=== PATIENT | female | born 1975 | race Asian ===

== ENCOUNTER 2018-09-12 22:03 | Inpatient (IN) | payer OTHER ==
[~2018-09-12] VITALS: Ht 152.4 cm; Wt 38.6 kg
[2018-09-12 22:11] VITALS: Ht 152.4 cm; Wt 38.6 kg
--- NOTE | 2018-09-12 22:15 | NUR ---
PT BROUGHT TO ED BY FAMILY WITH C/O FEVER AND COUGH SINCE WEDNESDAY. PER FAMILY THEY MEDICATED HER WITH 1 DOSE OF TYLENOL ON WEDNESDAY MORNING BUT DID NOT CONTINUE MEDICATION THERAPY. PER FAMILY PT HAS BEEN EXPERIENCING A FEVER AND A COUGH. PT FAMILY STATES THAT THEY DID NOT TAKE HER TEMP JUST "FELT SHE WAS WARM". PT RECTAL TEMP 105.0 AT THIS TIME. ID TYLENOL ADMINISTERED PER RN PROTOCOL. PT NOTED WITH WEAK COUGH THAT DOES NOT PRODUCE MUCOUS AT THIS TIME. PT LUNG SOUNDS COURSE AT THIS TIME. PT O2 SAT NOTED AT 88% ON RA, PT PLACED ON 4L O2 AT THIS TIME. PT O2 SAT 94% NOW. PT HAS MEDICAL HX OF MS AND IS NON VERBAL WHICH IS HER BASELINE, PER FAMILY PT "SEEMS DROWSY". PT AWAKE AND ALERT AT THIS TIME, PT WITHDRAWS TO PAIN BUT EYES TRACK APPROPRIATELY. PT FAMILY AT BEDSIDE AT THIS TIME.
--- NOTE | 2018-09-12 23:05 | NUR ---
INSERTED STRAIGHT CATH USING STERILE TECHNIQUE, CLEAR YELLOW URINE SENT TO LAB FOR TESTING.
--- NOTE | 2018-09-12 23:20 | NUR ---
PT RESTING IN A POSITION OF COMFORT AT THIS TIME. AWAKE AND ALERT, ACTING APPROPRIATELY FOR DEVELOPMENTAL AGE. FAMILY AT BEDSIDE, PT ON CM.
[2018-09-12] MEDS ORDERED: TEGRETOL200 MG PO (23:27)
[2018-09-12] MEDS ORDERED: DEPAKOTE ER250 M1 PO (23:27)
[2018-09-12] MEDS ORDERED: TOPIRAMATE100 M1 PO (23:28)
[2018-09-12 23:54] LABS: PLATELET COUNT 217 x10^3mcL (130-400); RED CELL DISTRIBUTION WIDTH 12.9 % (11.5-14.5)
[2018-09-12 23:57] LABS: BASOPHIL % 0 % (0-2)
[2018-09-12 23:57] LABS: UA SPECIFIC GRAVITY 1.025 (1.005-1.035); microscopic required? YES; urine erythrocyte 3+ (NEGATIVE)
[2018-09-13] VITALS (7 sets, daily range): BP systolic 75–128; BP diastolic 47–77
[2018-09-13 00:04] LABS: CALCIUM 7.8 mg/dL (8.5-10.1); CARBON DIOXIDE 21.4 mmol/L (21-32); CHLORIDE SERUM 111 mmol/L (98-107); CREATININE SERUM 0.6 mg/dL (0.6-1.0); GFR1 > 60 mL/min; GLUCOSE SERUM 105 mg/dL (74-106); POTASSIUM SERUM 3.3 mmol/L (3.5-5.1); SODIUM SERUM 145 mmol/L (136-145)
[2018-09-13 00:09] LABS: ALKALINE PHOSPHATASE 182 U/L (46-116); ALT/SGPT 21 U/L (14-59); AST/SGOT 24 U/L (15-37); BILIRUBIN TOTAL 0.3 mg/dL (0.20-1.00)
[2018-09-13 00:12] LABS: ALBUMIN 2.4 g/dL (3.4-5.0)
--- NOTE | 2018-09-13 00:15 | NUR ---
PT CONTINUES TO REST IN A POSITION OF COMFORT, PT ON FULL CM. PT AWAKE AND ALERT, EYES TRACKING APPROPRIATELY. FAMILY AT BEDSIDE.
[2018-09-13 00:18] LABS: CK-MB < 0.5 ng/mL (0-3.6); CREATINE KINASE 48 U/L (26-192)
--- NOTE | 2018-09-13 01:25 | NUR ---
REPORT GIVEN TO SHREYA VALENTINE TO ASSUME CARE OF PT.
--- NOTE | 2018-09-13 01:47 | NUR ---
PT TRANSFERRED TO [facility] BY [facility] BY [facility] DESIR AND REINA RN. PT ON FULL CM FOR TRANSPORT. PT ACCEPTED BY DIANA VALENTINE TO ASSUME PT CARE. PT AWAKE AND ALERT ACTING APPROPRIATELY FOR AGE, EYES TRACKING APPROPRIATELY, PT FAMILY STATES SHE IS ACTING "NORMAL". PT FAMILY AT SIDE.
--- NOTE | 2018-09-13 02:00 | NUR ---
RECIEVED PT VIA GURNEY FROM ER ACOOMPANIED BY RN AND FATHER AND MOTHER OF THE PT, PT IS NONVERBAL, NO ACUTE DISTRESS AT THIS TIME, PT IS ON 2L NC NO SOB AT THIS TIME, ADMISSION ASSESSMENT PERFORMED AT THIS TIME, IV TO THE RIGHT AND LEFT WRISTS, TELE MONITOR 3 NSR, PT VITAL SIGNS STABLE, SIEZURE PRECAUTIONS IN PLACE, CALL LIGHT WITHIN REACH, BED IN THE LOWEST POSITION WILL CONTINUE TO MONITOR.
[2018-09-13 02:13] LABS: MAGNESIUM 1.7 mg/dL (1.8-2.4); PHOSPHOROUS 2.7 mg/dL (2.5-4.9)
[2018-09-13 02:17] LABS: FREE T4 0.81 ng/dL (0.76-1.46); FREE THYROXINE INDEX 2.2 ug/dL (1.4-4.5)
[2018-09-13 02:25] LABS: T3 TOTAL 0.95 ng/mL
--- NOTE | 2018-09-13 05:18 | NUR ---
PT SLEPT SINCE ADMISSION, PT HAD NO ACUTE RESPIRATORY DISTRESS SINCE ADMISSION, SIEZURE PRECAUTIONS WERE PUT IN PLACE AND MAINTAINED THROUGH SHIFT, PT HAD LOW POTASSIUM AND MAG WHICH WERE COVERED VIA K RIDER AND MAG PO, SAFETY PRECAUTIONS WERE MAINTAINED, WILL CONTINUE TO MONITOR AND ENDORSE CARE TO ONCOMING RN
[2018-09-13 06:38] LABS: PLATELET COUNT 207 x10^3mcL (130-400); RED CELL DISTRIBUTION WIDTH 12.4 % (11.5-14.5)
--- NOTE | 2018-09-13 06:44 | NUR ---
DR BUSTILLOS IN TO SEE PATIENT STATED "PLANNING TO CONTINUE CURRENT COURSE OF ABX"
[2018-09-13 07:02] LABS: CALCIUM 8.2 mg/dL (8.5-10.1); CARBON DIOXIDE 18.9 mmol/L (21-32); CHLORIDE SERUM 116 mmol/L (98-107); CREATININE SERUM 0.6 mg/dL (0.6-1.0); GFR1 > 60 mL/min; GLUCOSE SERUM 89 mg/dL (74-106); MAGNESIUM 1.9 mg/dL (1.8-2.4); PHOSPHOROUS 2.7 mg/dL (2.5-4.9); POTASSIUM SERUM 4.3 mmol/L (3.5-5.1); SODIUM SERUM 148 mmol/L (136-145)
--- NOTE | 2018-09-13 07:30 | NUR ---
RECEIVED PT FROM AUTOMOTIVE REFINISH TECHNICIAN. PT IS SLEEPING THIS TIME. FATHER AT BEDSIDE. NO DISTRESS NOTED. STABLE. WILL ASSESS AND DOCUMENT. SAFTEY PRECAUTIONS ARE IN PLACE. WILL MONITOR.
--- NOTE | 2018-09-13 09:30 | NUR ---
PT REMAINS STABLE. GAVE REPORT TO RN CECE.
--- NOTE | 2018-09-13 10:50 | NUR ---
SPOKE WITH DR BUSTILLOS FOR CONTINUATION OF HOME MEDS. NOTIFIED THAT PHARMACY INQUIRED ABOUT TEST AND SUGGESTED DEPAKOTE LEVEL BE DRAWN. DR BUSTILLOS TO ASSESS HOME MEDICATIONS AND PLACE ORDERS.
[2018-09-13] MEDS ORDERED: DEPAKOTE SPRIN125 MG PO ×2 (10:54→10:55)
[2018-09-13] MEDS ORDERED: MONTELUKAST SOD10 M1 PO (10:56)
[2018-09-13] MEDS ORDERED: LIPI10 PO (10:58)
--- NOTE | 2018-09-13 11:36 | NUR ---
DR JACOBSEN IN TO SEE AND ASSESS PATIENT.
[2018-09-13 11:55] LABS: BAND NEUTROPHIL 19 % (0-10); BASOPHIL 0 % (0-2); MONOCYTE 3 % (0-7); PLATELET MORPHOLOGY PLATELETS DECREASED; SEGMENTED NEUTROPHILS 73 % (37-75)
[2018-09-13 11:56] LABS: rbc morphology (normal/abnorm) ABNORMAL (NORMAL)
--- NOTE | 2018-09-13 12:16 | NUR ---
IN TO RECHECK PT BP 85/56 DR APOLLO DILLON AND PAGE GATED. PT ASYMPTOMATIC.
--- NOTE | 2018-09-13 12:38 | NUR ---
ATTEMPTED TO FEED PATIENT. PT IS REFUSING ALL FOOD. WILL RETRY LATER AND AGAIN WHEN PARENTS ARRIVE.
--- NOTE | 2018-09-13 13:37 | NUR ---
REPORT GIVEN TO ZAID VALENTINE. PT RESTING COMFORTABLY ON AIR MATTRESS WITH FATHER AT BEDSIDE. ALL NEEDS MET. FATHER IS FEEDING PATIENT. ENDORSED THAT PT NOW HAS PUREE DIET AND HOME MEDICATIONS HAVE BEEN CONTINUED. ALL QUESTIONS AND CONCERNS ADDRESSED.
--- NOTE | 2018-09-13 13:38 | NUR ---
RECEIVED PT FROM [place]. PT IS SLEEPING THIS TIME. STABLE.
--- NOTE | 2018-09-13 13:50 | NUR ---
CHARGE NURSE SAID SHE INFORMED ABOUT CARBAMAZEPINE LEVEL 12.9 AND TOLD HER SHE MAY HOLD TODAY'S DOSE.
--- NOTE | 2018-09-13 17:50 | NUR ---
INFORMED ABOUT BP 84/51 WITH MAP 62. PT IS ASYMPTAMATIC. PT IS 85LB ONLY. NO NEW ORDER RECIEVED THIS TIME.
--- NOTE | 2018-09-13 19:15 | NUR ---
PT REMAINS STABLE. DENIES PAIN THIS TIME. GAVE REPORT TO PRESERVATIONIST NURSE.
--- NOTE | 2018-09-13 19:45 | NUR ---
RECEIVED REPORT FROM DAY SHIFT RN. PT RESTING IN BED. OPENS EYES TO VERBAL STIMULI. NO SOB ON O2 2L VIA NC. NO FACIAL GRIMACING. IV SALINE LOCK TO RT WRIST. IV TO LT WRIST, NS INFUSING. SAFETY MEASURES IN PLACE. BED IN LOWEST POSITION. SIDE RAIL PADS IN PLACE. ON AIR MATTRESS. WILL ANTICIPATE NEEDS.
[2018-09-14 06:01] VITALS: BP 124/95
--- NOTE | 2018-09-14 07:25 | NUR ---
PT RESTED AT INTERVALS THROUGHOUT SHIFT. NO SOB ON O2 2L VIA NC. NO SEIZURES OR DISTRESS NOTED. TURNED Q2H. CLEANED AND MADE COMFORTABLE. SAFETY MEASURES MAINTAINED. ENDORSED CONTINUITY OF CARE TO DAY SHIFT RN.
[2018-09-14 08:34] VITALS: BP 88/53
[2018-09-14 09:09] VITALS: BP 92/53
--- NOTE | 2018-09-14 09:18 | NUR ---
ADMINISTERED MEDICATION PER MAR. WITH ASSISTANCE OF CLAUDE VALENTINE, REPOSITIONED PATIENT TO HER LEFT SIDE. PATIENT HAD BM AND WAS CLEANED WITH LINEN CHANGED. PATIENT CALM, FAMILY AT BEDSIDE
[2018-09-14 09:33] LABS: CALCIUM 8.7 mg/dL (8.5-10.1); CHLORIDE SERUM 115 mmol/L (98-107); CREATININE SERUM 0.6 mg/dL (0.6-1.0); GFR1 > 60 mL/min; GLUCOSE SERUM 118 mg/dL (74-106); PHOSPHOROUS 1.5 mg/dL (2.5-4.9); POTASSIUM SERUM 3.7 mmol/L (3.5-5.1); SODIUM SERUM 148 mmol/L (136-145)
--- NOTE | 2018-09-14 09:50 | NUR ---
PER TRANSFER ORDER PATIENT IS NOW MEDSURG, REMOVED PATIENT TELE NUMBER3. TELE MONITOR #3 [facility] TO [facility].
[2018-09-14 10:17] LABS: BASOPHIL % 0.3 % (0-2); PLATELET COUNT 204 x10^3mcL (130-400); RED CELL DISTRIBUTION WIDTH 12.8 % (11.5-14.5)
--- NOTE | 2018-09-14 12:07 | NUR ---
ADMKHUSHBU GUALLPA PER MAY. PATIENT LAYING SUPINE AFTER LAST TURNING. PATIENT RESPONDS TO VOICE. FAMILY IS NOT AT BEDSIDE AT THIS TIME. PATIENT DOES NOT SEEM TO BE SHOWING ANY SIGNS OF PAIN AT THIS TIME
--- NOTE | 2018-09-14 13:05 | NUR ---
Initial Nutrition Assessment: Dx: Sepsis, PNA PMHx: cerebral palsy with epilepsy, HLD PSHx: Hysterectomy Labs: Na 148H, Alb 2.4L, Ca 8.2L, ALP 182H, Lipase 49L, WBC 13.7H, Hct 35L Meds: Colace, Depakote, Lipitor, Mag-ox, Toradol, Tums, Zofran Diet: Pureed diet x 1 day PO Intake: 100% of breakfast 09/14, 40% average of 3 meals 09/13. Ht: 5'0 Wt: 85 lb, 39 kg BMI: 16.6 kg/m2 (Underweight) Bed scale: 76.1 lb IBW: 100 lb, 45 kg %IBW: 85 UBW: unknown Age: 43 yrs old/Female Food Allergies: unknown Skin: is intact. Hoang: 15 Edema: none GI: abd is soft, w/ active bowel sounds. Last BM: 09/12/18, soft Pt is aphasic, on nasal cannula, w/ 2 CRANE HELPER's at bedside providing care. Per CRANE HELPER, family fed pt this morning, % PO intake is unknown. Pt is not able to provide any history, no family at bedside during RD visit. All information gathered from EMR. Pt appeared emaciated. Per RN, pt ate 100% of breakfast this morning. Trigger received: appears underwt/malnourished, admitted w/ potential risk diagnosis. Consult received for malnutrition and BMI 16.6 kg/m2. Problem with: N/V/D/C: no Problems with: Chewing: yes Swallowing: yes Current appetite: poor Recent wt change: unknown %wt change: n/a Vitamin/Supplement use: unknown Special diet at home: none Physical activity: none, pt is wheelchair bound and has limited ROM of extremities. Nutrition education: is not appropriate. Food-drug interactions: Colace, Lipitor, Zofran. Education was not appropriate. Estimated Nutritional Needs Based on current body weight 39 kg Energy:7063-9068 kcal/d (35-40 kcal/kg for for severely underweight status) Protein: 56-78 g/d (1.5-2 g/kg for severely underweight status) Fluid: 8550-2411 ml/d (1 ml/kcal) or per doctor Nutrition Diagnosis 1 Increased nutritional needs r/t metabolic demands AEB estimated calories and protein for sepsis. 2. Severely underweight r/t chronic physiological conditions 2/2 age and poor appetite AEB measured BMI 16.6 kg/m2. Intervention 1. Recommend continuing Pureed diet per MD orders. 2. Recommend adding Ensure Enlive TID. ONS will provide additional 1050 kcal and 60 gm protein daily. 3. Recommend Megace. Monitor/Evaluate Goal: PO intake at least 75% of estimated needs Monitor: PO intake, Labs, GI function F/U in 2-3 days as high risk 09/16-09/18
--- NOTE | 2018-09-14 16:25 | NUR ---
FOUND PATIENT LAYING SUPINE IN BED WATCHING TV. PATIENT NOT COMLAINING OF ANY PAIN. PATIENT STATES HE REFUSED PHYSICAL THERAPY TO WALK WITH HIM STATING "I WANT TO SAVE MY LAST BIT OF STRENGTH TO CRAWL HOME" AND HE "JUST WANTS TO GET HOME SO HE CAN GET STRONGER." REINFORCED TEACHING TO PATEINT FOR NEED OF PHYSICAL THERAPY. PATIENT IS ABLE TO USE HIS UPPER EXTREMITIES TO SIT UP IN BED BUT WILL NOT SIT AT EDGE OF BED TO USE URINAL SAYING HE IS TOO WEAK
--- NOTE | 2018-09-14 16:28 | NUR ---
ADAM AMEZCUA CONTRACT ASSOCIATE MANAGER REPORTED THEY REPOSITIONED PATIENT TO LEFT SIDE LAYING. PATIENT HAD BM AND URINATED. PATEINT CHANGED AND REPOSITIONED
[2018-09-14 16:32] VITALS: BP 94/54
--- NOTE | 2018-09-14 17:23 | NUR ---
ADMINISTERED MEDICATOIN PER MAR. PATIENT RESTING COMFORTABLY ON RIGHT SIDE. PATIENT DOES NOT SEEM TO BE IN ANY PAIN
--- NOTE | 2018-09-14 20:22 | NUR ---
PT RECIEVED AWAKE ALERT NON VERBAL WITH FAMILY AT THE BEDSIDE,PT HAS HL TO BOH WITH THE SITE INTACT,PT ON 2L N/C SAT 96%,PT CONTRACTED TO BUE AND BLE,KEPT CLEAN AND DRY TO TOUCH,PT INCONTINENT,SKIN IS WARM AND DRY TO TOUCH,PT ON LOW AIR MATTREES,HOB,PT IS TOTAL CARE,CALL LIGHT EASY REACHED AND WILL CONTINUE TO MONITOR.
[2018-09-14 21:28] VITALS: BP 88/61
--- NOTE | 2018-09-14 22:48 | NUR ---
PT CLEAN REPOSITION AND WAS MADE COMFORTABLE IN BED,WILL CONTINUE TO MONITOR.
--- NOTE | 2018-09-15 04:17 | NUR ---
PT REPOSITIONN AND WAS MADE COMFORTABLE IN BED AND WILL CONTINUE TO MONITOR.
[2018-09-15 05:30] VITALS: BP 91/66
[2018-09-15 06:23] LABS: BASOPHIL % 0.3 % (0-2); PLATELET COUNT 233 x10^3mcL (130-400)
--- NOTE | 2018-09-15 06:24 | NUR ---
REPOSITION CLEAN AND WAS MADE COMFORTABLE IN BED AND WILL CONTINUE TO MOBNITOR NO CHANGE.
[2018-09-15 07:06] LABS: CARBON DIOXIDE 20.8 mmol/L (21-32); CHLORIDE SERUM 115 mmol/L (98-107); CREATININE SERUM 0.5 mg/dL (0.6-1.0); GFR1 > 60 mL/min; GLUCOSE SERUM 100 mg/dL (74-106); MAGNESIUM 2.2 mg/dL (1.8-2.4); PHOSPHOROUS 2.8 mg/dL (2.5-4.9); POTASSIUM SERUM 4.5 mmol/L (3.5-5.1); SODIUM SERUM 147 mmol/L (136-145)
--- NOTE | 2018-09-15 07:15 | NUR ---
RECEIVED HAND OFF REPORT. FOUND PATIENT RIGHT SIDE LAYING IN BED. EYE OPEN, BREATHING STEADY. INCOMPREHENSABLE SOUNDS AND NO COORDINATED MOVENT. PATIENT DOES NOT SEEM TO BE IN ANY PAIN AT THIS TIME. IV FLUSHES WELL, TKO RATE. WILL CONTINUE TO MONITOR
--- NOTE | 2018-09-15 09:52 | NUR ---
ADMINISTERED MEDICATIONS PER AR. PATIENT TURNED TO LEFT SIDE, BD PRESENT. CHANGED PATIENT LINEN WITH HELP OF CARISSA BOOTH. PATIENT FAMILY AT BEDSIDE
[2018-09-15 10:03] VITALS: BP 104/68
--- NOTE | 2018-09-15 11:47 | NUR ---
ADMINISTERED ANTIBIOTIC PER MAY. REPSITIONED PATIENT FROM LEFT SIDE TO SUPINE. PATIENT DOES NOT APEAR TO BE IN PAIN
--- NOTE | 2018-09-15 14:03 | NUR ---
PATIENT HAD 1 EPISODE OF VOMITING. NO AIRWAY COMPROMISE. CLEANED PATIENT AND CHANGED SOILED LINEN. TURNED PATIENT TO LEFT SIDE LAYING. ADMINISTERED ZOFRAN PRN FOR VOMITING.
--- NOTE | 2018-09-15 17:00 | NUR ---
PATIENT MOVED BY STAFF TO [facility], [facility]. NO INCIDENT OR INJURY
--- NOTE | 2018-09-15 17:25 | NUR ---
ADMINISTERED MEDIATION PER MAY. PATIENT MOVED TO [facility]. PATIENT TLLERATING WELL. NO OBVIOUS SIGNS OF PAIN AT THIS TIME
[2018-09-15 17:40] VITALS: BP 98/63
--- NOTE | 2018-09-15 18:57 | NUR ---
PATIENT HAD BM. CHANGED PATIENT AND REPOSITIONED. FAMILY AT BEDSIDE AT THIS TIME
--- NOTE | 2018-09-15 19:20 | NUR ---
PT RECEIVED AWAKE AND ALERT, UNABLE TO MAKE NEEDS KNOWN OR FOLLOW SIMPLE COMMAND. MED-SURG, NO S/S OF CP/PRESSURE OBSERVED. BREATHING IS EVEN AND UNLABORED ON RA, NO RESP DISTRESS NOTED. ABD SOFT AND FLAT, NO N/V PRESENT. PT HAS EPISODES OF URINARY INCONTINENCE. GENERALIZED WEAKNESS, ON AIR MATTRESS; TOTAL CARE. CONTRACTURES TO BUE AND BLE. SKIN IS WARM AND DRY, INTACT. NO S/S OF PAIN OBSERVED AT THIS TIME. IV TO RW AND LW, PATENT AND INTACT, SITES WNL. NO ACUTE DISTRESS OBSERVED. BED ALARM ON. BED IN LOWEST SETTING, SIDE RAILS UP X2, CALL LIGHT WITHIN REACH. WILL CONT TO MONITOR.
[2018-09-15 20:49] VITALS: BP 94/61
--- NOTE | 2018-09-16 00:22 | NUR ---
PT RESTING IN BED WITH EYES CLOSED, BUT IS EASILY AROUSABLE. BREATHING IS EVEN AND UNLABORED, NO RESP DISTRESS NOTED. PT INCONTINENT OF URINE, PT CLEANED AND REPOSITIONED. NO S/S OF PAIN OBSERVED. NO ACUTE DISTRESS NOTED. BED ALARM ON, CALL LIGHT WITHIN REACH. WILL CONT TO MONITOR.
[2018-09-16 06:11] VITALS: BP 109/75
[2018-09-16 07:15] LABS: BASOPHIL % 0.3 % (0-2); PLATELET COUNT 258 x10^3mcL (130-400); RED CELL DISTRIBUTION WIDTH 12.9 % (11.5-14.5)
--- NOTE | 2018-09-16 07:30 | NUR ---
RECEIVED PATIENT RESTING IN BED COMFORTABLY, AWAKE AND NON-VERBAL. NO SIGNS OF CHEST PAIN NOTED. BREATHING EVEN AND UNLABBORED ON ROOM AIR, HOB ELEVATED, ASPIRATION PRECAUTIONS MAINTAINED, PATIENT IS ON RT PROTOCOL. NO SIGNS OF PAIN NOTED. PATIENT IS TOTAL CARE, ON LOW AIR LOSS MATTRESS, WILL CONTINUE WITH REPOSITIONING Q2H DURING SHIFT AND MAINTAIN PATIENT CLEAN AND DRY. IV TO RFA AND LFA INTACT AND PATENT FREE FROM REDNESS AND INFILTRATION. PATIENT IS CALM WITH CARE. SAFETY PRECAUTIONS MAINTAINED. WILL MONITOR.
--- NOTE | 2018-09-16 07:33 | NUR ---
PT SLEPT WELL THROUGHOUT THE EVENING. BREATHING IS EVEN AND UNLABORED ON RA, NO RESP DISTRESS NOTED. NO S/S OF PAIN OBSERVED. PT INCONTINENT OF URINE, PT CLEANED AND REPOSITIONED, GOWN AND LINENS CHANGED. NO ACUTE CHANGES ENCOUNTERED DURING SHIFT. ALL NEEDS MET AND ANTICIPATED. IV TO RW AND LW, PATENT AND INTACT, SITE WNL. BED IN LOWEST SETTING, SIDE RAILS UP X2, BED ALARM ON, CALL LIGHT WITHIN REACH. CONTINUITY OF CARE ENDORSED TO AM NURSE. ALL QUESTIONS AND CONCERNS ADDRESSED.
[2018-09-16 07:50] LABS: CALCIUM 8.6 mg/dL (8.5-10.1); CARBON DIOXIDE 23.5 mmol/L (21-32); CHLORIDE SERUM 109 mmol/L (98-107); CREATININE SERUM 0.5 mg/dL (0.6-1.0); GFR1 > 60 mL/min; GLUCOSE SERUM 97 mg/dL (74-106); POTASSIUM SERUM 4.1 mmol/L (3.5-5.1); SODIUM SERUM 142 mmol/L (136-145)
--- NOTE | 2018-09-16 08:28 | NUR ---
RT AT BEDSIDE FOR BREATHING TREATMENT.
[2018-09-16 09:27] VITALS: BP 110/66
--- NOTE | 2018-09-16 10:02 | NUR ---
PATIENT RESTING COMFORTABLY IN BED, NO DISTRESS NOTED, FAMILY IVANNA AT BEDSIDE. ALL NEEDS ATTENDED TO, SAFETY PRECAUTIONS MAINTAINED. WILL MONITOR.
[2018-09-16] MEDS ORDERED: LEVAQUIN750 MG PO (12:06)
[2018-09-16] MEDS ORDERED: CLEOCIN HCL300 MG PO (12:08)
[2018-09-16 12:40] VITALS: BP 110/66
--- NOTE | 2018-09-16 13:15 | NUR ---
PATIENT STABLE FOR DISCHARGE HOME. DISCHARGE INSTRUCTIONS, PRESCRIPTION, BELONGINGS LIST AND EDUCATION REVIEWED WITH PATIENTS FATHER IVANNA AT BEDSIDE, VERBALIZED UNDERSTANDING TO FOLLOW UP WITH PCP ON 09/27/18. ALL QUESTIONS AND CONCERNS ADDRESSED. IV TO RFA AND LFA REMOVED CATH INTACT. PATIENTS FATHER IVANNA WILL BRING PATIENTS WHEELCHAIR SHE USES AT HOME FROM HIS CAR. ALL NEEDS ATTENDED TO. SAFETY PRECAUTIONS MAINTAINED.
--- NOTE | 2018-09-16 13:26 | NUR ---
PATIENT STABLE FOR DISCHARGE HOME. ARM BANDS REMOVED. PATIENT ASSISTED DOWN TO LOBBY VIA PATIENTS OWN WHEELCHAIR FROM HOME ACCOMPANIED BY FATHER AND NURSE AID. ALL PERSONAL BELONGINGS SENT HOME WITH PATIENT.
== END 2018-09-16 13:26 | disposition home or self-care (01) | DRG 720 ==
LOC: ED 22:03 → MU 09-13 01:00 → DU 09-13 01:00 → MU 09-14 09:50
PROVIDERS: Emergency Medicine; General Practice; ADMIT Internal Medicine
DX: A41.9 Sepsis, unspecified organism (principal); J69.0 Pneumonitis due to inhalation of food and vomit; E43 Unspecified severe protein-calorie malnutrition; J96.01 Acute respiratory failure with hypoxia; G80.9 Cerebral palsy, unspecified; G40.802 Other epilepsy, not intractable, without status epilepticus; Z68.1 Body mass index [BMI] 19.9 or less, adult; J44.1 Chronic obstructive pulmonary disease with (acute) exacerbation; E87.6 Hypokalemia; E83.42 Hypomagnesemia; D53.9 Nutritional anemia, unspecified; E83.51 Hypocalcemia; E78.5 Hyperlipidemia, unspecified; Z99.3 Dependence on wheelchair; Z90.710 Acquired absence of both cervix and uterus; Z79.899 Other long term (current) drug therapy
CPT/HCPCS: 83880; 84439; 87804; G0378; J1956; J2405; J2543; J3480; J7030; J7620; Q0092

== ENCOUNTER 2018-10-01 18:15 | Inpatient (IN) | payer OTHER ==
[~2018-10-01] VITALS: Ht 152.4 cm; Wt 32.5 kg
[~2018-10-01 18:15] MED LIST: CLEOCIN HCL300 MG PO; DEPAKOTE ER250 M1 PO; DEPAKOTE SPRIN125 MG PO; LEVAQUIN750 MG PO; LIPI10 PO; MONTELUKAST SOD10 M1 PO; TEGRETOL200 MG PO; TOPIRAMATE100 M1 PO
--- NOTE | 2018-10-01 19:08 | NUR ---
PT BIB SPOUSE, C/O INTERMITTENT FEVERS AND DRY COUGH X1 DAY. PER SPOUSE, PT ADMITTED 2WKS AGO FOR PNA, D/C HOME. PT AWOKE W/ FEVERS AND DRY COUGH TODAY. PT HAS HX OF CP, NON-VERBAL. LUNG SOUNDS CLEAR THROUGHOUT UPON AUSCULTATION, RESPS E/U, NO RESP DISTRESS NOTED AT THIS TIME. SPOUSE REPORTS NO OTHER COMPLAINTS. SPOUSE DENIES N/V/D. SEIZURES PRECAUSTIONS IN PLACE FOR HX SEIZURES, LAST SEIZURE WAS A FEW DAYS AGO PER SPOUSE. WILL CONTINUE TO MONITOR.
--- NOTE | 2018-10-01 19:20 | NUR ---
X-RAY AT BEDSIDE
--- NOTE | 2018-10-01 19:34 | NUR ---
EKG IN PROGRESS BY EMT KATHRYN AT BEDSIDE.
--- NOTE | 2018-10-01 19:58 | NUR ---
PT AWAKE, LAYING IN POSITION OF COMFORT. PT NON-VERBAL. PER SPOUSE, PT ACTING APPROPRIATELY. 2 BED RAILS UP, BED IN LOW AND LOCKED POSITION, SEIZURE PADS IN PLACE. CALL LIGHT W/IN REACH OF SPOUSE, SPOUSE AT BEDSIDE. WILL CONTINUE TO MONITOR.
[2018-10-01 20:03] LABS: PLATELET COUNT 274 x10^3mcL (130-400); RED CELL DISTRIBUTION WIDTH 13.4 % (11.5-14.5)
--- NOTE | 2018-10-01 20:16 | NUR ---
IN AND OUT CATHETER PERFORMED FOR URANALYSIS ORDER. PROCEDURE CHAPERONED BY MAXWELL VALENTINE. EMT KATHRYN TO ASSIST PROCEDURE
[2018-10-01 20:18] LABS: BAND NEUTROPHIL 11 % (0-10); BASOPHIL 0 % (0-2); METAMYELOCTE 1 % (0-2); MONOCYTE 3 % (0-7); SEGMENTED NEUTROPHILS 79 % (37-75)
[2018-10-01 20:20] LABS: rbc morphology (normal/abnorm) NORMAL (NORMAL)
[2018-10-01 20:23] LABS: CALCIUM 8.8 mg/dL (8.5-10.1); CARBON DIOXIDE 19.1 mmol/L (21-32); CHLORIDE SERUM 109 mmol/L (98-107); CREATININE SERUM 0.8 mg/dL (0.6-1.0); GFR1 > 60 mL/min; GLUCOSE SERUM 143 mg/dL (74-106); POTASSIUM SERUM 3.3 mmol/L (3.5-5.1); SODIUM SERUM 141 mmol/L (136-145)
[2018-10-01 20:28] LABS: microscopic required? NO
[2018-10-01 20:35] LABS: ALBUMIN 2.8 g/dL (3.4-5.0); ALKALINE PHOSPHATASE 80 U/L (46-116); ALT/SGPT 9 U/L (14-59); AST/SGOT 17 U/L (15-37); BILIRUBIN TOTAL 0.42 mg/dL (0.20-1.00); TOTAL PROTEIN, SERUM 6.8 g/dL (6.4-8.2)
[2018-10-01 20:41] LABS: urine erythrocyte NEGATIVE (NEGATIVE)
--- NOTE | 2018-10-01 21:06 | NUR ---
PT AWAKE, LAYING IN POSITION OF COMFORT. 2 BED RAILS UP, BED IN LOW AND LOCKED POSITION, SEIZURE PADS IN PLACE. VSS, RESPS E/U, NAD NOTED AT THIS TIME. SPOUSE AT BEDSIDE. IL NS STARTED AT 100ML/HR PER MD ORDER. WILL CONTINUE TO MONITOR.
--- NOTE | 2018-10-01 21:29 | NUR ---
500MG IV AZITHROMYCIN STARTED PER MD ORDER. SEE LAB RESULTS
--- NOTE | 2018-10-01 22:32 | NUR ---
REPORT GIVEN TO ANGIE
--- NOTE | 2018-10-01 22:36 | NUR ---
MD AWARE OF BP, PT OK TO GO UP
--- NOTE | 2018-10-01 22:48 | NUR ---
RECEIVED FROM ED,PUT IN ROOM [address] AND MADE COMFORTABLE.MEDSURG PATIENT.DUSTIN WILL ADMIT,THANKS.
--- NOTE | 2018-10-01 22:48 | NUR ---
RECEIVED PT VIA GUERNEY FROM E/D, ACCOMPANIED BY TRANSPORTER. PT AWAKE, NON-VERBAL, UTD ORIENTATION, SEIZURE PRECAUTIONS IN PLACE. NO S/S CHEST PAIN OR DISCOMFORT. MELANY LUNGS DIM, CHEST RISING EVENLY, R/A, 97%, NON-PRODUCTIVE COUGH. ABD SOFT, FLAT, NON-TENDER, NORMOACTIVE BOWEL SOUNDS X 4 QUADS, LAST BM 10/01/18, LOOSE, BOWEL AND BLADDER INCONTINENT, USES DIAPERS AT HOME. GENERALIZED WEAKNESS, CONTRACTURES TO BUE/BLE, FALL RISK PROTOCOL IN PLACE. CHRISTIANO: 10, LALM IN PLACE FOR SKIN MANAGEMENT. IV SITE RFA 20G, CDI. UNABLE TO PARTICIPATE IN ANY LEARNING ACTIVITY. PADDED SIDE RAILS UP X 2, BED IN LOW POSITION. WILL ENDORSE TO SERGE ADAMS.
[2018-10-01 23:12] VITALS: BP 100/60
--- NOTE | 2018-10-01 23:19 | NUR ---
NS AT 100 CC/ HOUR,EXTENSION TUBING APPLIED FOR EASIER HANDLING BOTH NURSES AND PATEINT,MITZIRJuana.PATIENT VERY TINY,65 LBS.NO FAMILY MEMBER.HAD LARGE BM FROM ER,KEEP CLEAN AND DRY,NO SKIN BREAKDOWN.PATIENT ON HER FETL POSITION,NONVERBAL.MED MANAGER CULINARY HERE,MADE PUCKETT OF LOW K+ LEVEL 3.3.
[2018-10-02] VITALS (9 sets, daily range): BP systolic 74–100; BP diastolic 46–63
--- NOTE | 2018-10-02 02:47 | NUR ---
FATHER WAS HERE EARLIER,VERY SUPPORTIVE OF CARE.SAYS HE TAKES CARE OF HER DUGHTER AT HOME,WITH .PATIENT PUT ON AIRMATTRESS,BONY,ONLY 65 LBS,DIETARY CONSULT,ASPIRATION PRECAUTION.NO DIET ORDER YET.
--- NOTE | 2018-10-02 04:39 | NUR ---
NEW ORDER RT PROTOCOL,CHIKI TX.RT MADE AWARE.
--- NOTE | 2018-10-02 05:47 | NUR ---
I AND O MEASURED.ATB SCHEDULED.IV SITE GOOD,NS AT 100 CC/ HOUR.WILL ENDORSE TO NEXT SHIFT,NO DIET ORDERE YET,DIETARY CONSULT,ASPIRATION PRECAUTION.WILL ENDORSE TO NEXT SHIFT.
--- NOTE | 2018-10-02 06:57 | NUR ---
NOW ON TELE INPATIENT.WILL GET BOX FROM [facility].
--- NOTE | 2018-10-02 07:02 | NUR ---
PATIENT NOW ON TELE 10 SR.NEW ORDER
[2018-10-02 07:04] LABS: BASOPHIL % 0.1 % (0-2); PLATELET COUNT 212 x10^3mcL (130-400); RED CELL DISTRIBUTION WIDTH 13.1 % (11.5-14.5)
[2018-10-02 07:10] LABS: CALCIUM 8.4 mg/dL (8.5-10.1); CARBON DIOXIDE 20.9 mmol/L (21-32); CHLORIDE SERUM 113 mmol/L (98-107); CREATININE SERUM 0.6 mg/dL (0.6-1.0); GFR1 > 60 mL/min; GLUCOSE SERUM 84 mg/dL (74-106); POTASSIUM SERUM 3.4 mmol/L (3.5-5.1); SODIUM SERUM 146 mmol/L (136-145)
--- NOTE | 2018-10-02 07:20 | NUR ---
RECEIVED PT. IN BED AWAKE, ALERT. PT. IS NON-VERBAL AND OPENS EYES WITH TACTILE/VERBAL STIMULI. NO SOB, NO N/V NOTED. NO INDICATION OF PAIN NOTED. NS RUNNING AT 100 CC/HR VIA IV SITE AT R FA. CONTRACTURES NOTED TO BUE AND BLE. PT. IS ON AIR MATTRESS. SCD TO BLE MAINTAINED. SEIZURE PRECAUTIONS IN PLACE. BED IN LOW POS., CALL LIGHT WITHIN REACH. SIDE RAILS UP X3. WILL REPOSITION Q 2 HRS.
--- NOTE | 2018-10-02 09:45 | NUR ---
B/P= 78/56 (63), P= 74. THE ABOVE B/P AND MAP WERE REPORTED TO DR. ZELAYA. ORDER TO GIVE NS 1L IV BOLUS RECEIVED.
--- NOTE | 2018-10-02 10:00 | NUR ---
IVF NS 1L BOLUS STARTED AT 1000 CC/HR.
--- NOTE | 2018-10-02 11:00 | NUR ---
1L NS IV BOLUS COMPLETED. B/P RECHECKED. B/P= 94/55 (68), P= 80.
--- NOTE | 2018-10-02 13:48 | NUR ---
B/P= 76/50 (58), P= 88. THE ABOVE B/P AND MAP WERE REPORTED TO DR. ZELAYA. ORDER TO GIVE 1 MORE LITER NS IV BOLUS RECEIVED.
--- NOTE | 2018-10-02 13:55 | NUR ---
DR. ZELAYA AT BEDSIDE TO ASSESS PT. AT THIS TIME.
--- NOTE | 2018-10-02 14:07 | NUR ---
IVF NS 1L IV BOLUS (2ND LITER) STARTED AT 1000 CC/HR.
--- NOTE | 2018-10-02 15:07 | NUR ---
2ND L NS IV BOLUS (1L ) COMPLETED. B/P= 74/52 (59), P= 60 ( R ARM); B/P= 70/49 (56), P= 56 ( L ARM). THE ABOVE B/Ps AND MAPs WERE REPORTED TO DR. ZELAYA. DR. ZELAYA STATED PT. WILL NEED TO BE TRANSFERRED TO ICU.
--- NOTE | 2018-10-02 15:20 | NUR ---
CALLED AND GAVE REPORT TO SOFIA RITCHIE RN IN ICU DEPT. ALL QUESTIONS AND CONCERNS ADDRESSED.
--- NOTE | 2018-10-02 15:35 | NUR ---
PT. IS BEING TRANSFERRED TO ICU DEPT. WITH ALL BELONGINGS. PT. IS BEING TRANSFERRED TO ROOM ICU BED #5.
--- NOTE | 2018-10-02 15:40 | NUR ---
PT TRANSFER FROM 209[facility] TO ICU 5 WITH DUSTIN RN, ILDA RN WITH PORTABLE CARDIC MONITOR AND IV FLUIDS. PT IS AWAKE ALERT, ABLE TO FOLLOW COMMANDS IN MANDARIN. PT ON ROOM AIR NO SIGNS OF RESP DISTRESS OR SOB NOTED. B/P 92/46 MAP 63 RR 20, AX TEMPT 97.5, 95%PO2SAT. PT ON FULL CARDIC MONITOR. BED AT LOW AND CALL LIGHT WITHIN REACH.
--- NOTE | 2018-10-02 16:05 | NUR ---
NBP 79/53 MAP 64 LEVOPHED STARTED AT 2MCG/KG/MIN TO ACHIEVE MAP 65.
--- NOTE | 2018-10-02 16:55 | NUR ---
RECEIVED PT TRANSFERED FROM [facility] UNIT WITH PRIMARY CARE NURSE. PT IS ALERT, AWAKE, NONVERBAL, BUT FOLLOW SIMPLE COMMAND. WILL CONTINUE TO MONITOR.
--- NOTE | 2018-10-02 18:31 | NUR ---
PT'S PARENTS AT BEDSIDE, PT FOLLOW SIMPLE COMMAND AND TOLERATE WELL ON PUREE DIET. PT ON LEVOPHED 0.5MCG/MIN, BP MAP > 65. IVF NS INFUSING AT 150ML/HR. WILL CONTINUE TO MONITOR.
--- NOTE | 2018-10-02 19:10 | NUR ---
RECEIVED REPORT FROM CHEY VALENTINE. WILL RESUME CARE.
--- NOTE | 2018-10-02 21:07 | NUR ---
CARBAMAZEPINE 200MG PO HELD PER DR. OLSON ORDER. LAB RESULT LEVELS TOO HIGH 12.9. ORDER TO RECHECK LABS IN AM.
--- NOTE | 2018-10-02 21:36 | NUR ---
DR. CROWELL MADE AWARE OF HIGH LEVEL OF CARBAMAZEPINE, PER DR. OLSON, WILL SKIP TONIGHT'S DOSE, AND CHECK LEVEL AGAIN AT 0500 THIS MORNING.
--- NOTE | 2018-10-02 22:34 | NUR ---
RIGHT FA IV NOT FLUSHING, CHECKED SITE FOR REDNESS OR SWELLING, NON VISIBILE. ADJUSTED ARM WITH NO SUCCESS. DID NOT WANT TO RISK IT WITH LEVOPHED INFUSING. REMOVED IV AND INITIATED NEW IV TO RIGHT BICEP 20G. PATENT, DRESSING CDI.
--- NOTE | 2018-10-02 22:35 | NUR ---
PT HAD ONE SMALL GREEN LIQUID STOOL. PT CLEANED AND CHANGED. Z GUARD APPLIED TO RUPESH AREA FOR REDNESS.
[2018-10-03 03:40] VITALS: BP 93/65
--- NOTE | 2018-10-03 04:41 | NUR ---
FOREST LAW AND POLICY PROFESSOR AT BEDSIDE FOR BLOOD DRAW.
--- NOTE | 2018-10-03 04:54 | NUR ---
DR. ZELAYA AT BEDSIDE ASSESSING PT. UPDATES PROVIDED.
[2018-10-03 05:11] LABS: CALCIUM 7.5 mg/dL (8.5-10.1); CHLORIDE SERUM 121 mmol/L (98-107); CREATININE SERUM 0.6 mg/dL (0.6-1.0); GFR1 > 60 mL/min; GLUCOSE SERUM 138 mg/dL (74-106); MAGNESIUM 1.9 mg/dL (1.8-2.4); POTASSIUM SERUM 4.5 mmol/L (3.5-5.1); SODIUM SERUM 149 mmol/L (136-145)
[2018-10-03 05:25] LABS: BASOPHIL % 0.5 % (0-2); PLATELET COUNT 141 x10^3mcL (130-400); RED CELL DISTRIBUTION WIDTH 13.7 % (11.5-14.5)
--- NOTE | 2018-10-03 05:53 | NUR ---
URINARY CATHETER, BARTH 16F INSERTED WITH 100CC OF YELLOW URINE OUTPUT NOTED. SECURED TO PT THIGH AND DRAINING VIA GRAVITY. PT TOLERATED WELL.
--- NOTE | 2018-10-03 07:08 | NUR ---
GAVE GROUP REPORT TO OSEI DODD, AND HILTON VALENTINE. ALL QUESTIONS AND CONCERNS ADDRESSED.
--- NOTE | 2018-10-03 07:16 | NUR ---
RECIEVED REPORT FROM CALEB VALENTINE. ALL QUESTIONS ANSWERED AND ADDRESSED. WILL RESUME CARE.
[2018-10-03 07:45] VITALS: BP 95/53
--- NOTE | 2018-10-03 07:51 | NUR ---
LEVOPHED TITRATED OFF. PT'S BP OF 96/64 (76).
--- NOTE | 2018-10-03 11:10 | NUR ---
HEMANGI WITH DIETARY AT BEDSIDE, STATED THAT IF THE PT IS DETERMINED TO NEED TUBE FEEDING A RESULT OF A FAILED SWALLOW EVAL SHE RECOMMENDS THE PT RECEIVE VITAL AF FORMULA. AWAITING SPEECH THERAPY TO CONDUCT SWALLOW EVAL AT THIS TIME.
--- NOTE | 2018-10-03 11:56 | NUR ---
1. Recommend Vital AF 1.2 @ 20ml/hr. Goal rate 50 ml/hr. FWF 65 ml Q4H. Goal rate will provide 1440 kcal and 90g protein. (Due to malnutrition and BMI 15.1 kg/m2). 2. Recommend Regular diet (texture to be determined by [employer] eval).
--- NOTE | 2018-10-03 11:56 | NUR ---
Initial Nutrition Assessment: IC05/1 CYNTHIA SANTANA IA HR Dx: sepsis and PNA PMHx: Cerebral palsy, Seizure PSHx: none Labs: NA 149H, BG 138H, P 2.0L Meds: Depakote, folic acid, levophed. Lipitor, zosyn Diet: Puree w/nectar thick liquids PO Intake: not documented Ht: 152.4 cm (60") Wt: 35 kg (77#) BMI: 15.1 kg/m2 (underweight) Bed scale: 42.9 kg (however not accurate d/t wt of pillows) IBW: 100# (45.4 kg) %IBW: 77 UBW: unable to access Age: 43/F Food Allergies: NKFA Skin: blanchable redness to sacral area Hoang: 13 Edema: none GI: Last BM: 10/03/18 (per RN) Trigger: appears underweight/malnourished, unintentional wt loss >10# x 1 month. Per H&P, Pt is a 43 years old female with PMH of cerebral palsy, epilepsy who presented to ED with worsening non-productive cough, fever 103.4 at home and chills. Patient was admitted last 2 weeks for PNA and discharged on antibiotics (Clindamycin and levaquin). RDN Visit (10/03): Patient looked extremely emaciated and malnourished. There was no family at bedside and patient was unable to comprehend/ respond. Dr. Flaherty asked RD to provide recommendations for tube feeding as patient is extremely underweight/ malnourished. Patient is awaiting swallow eval. FNS received consult for malnutrition on 10/03/18. Paged Dr. Mosqueda to discuss recommendations. Waiting for call back. Problem with: N/V/D/C: none (per RN Ene) Problems with: Chewing/Swallowing: swallow eval pending Current appetite: unable to access Recent wt change: unable to access %wt change: unable to access Vitamin/Supplement use: unable to access Special diet at home: unable to access Physical activity: unable to access Nutrition education given: Not appropriate at this time as patient is unable to comprehend d/t medical condition. Food-drug interactions: Lipitor - avoid grapefruit Education given: no Estimated Nutritional Needs Based on actual body weight 35 kg Energy: 4621-3639 kcal/d (35-40 kcal/kg)- underweight Protein: 42-49 g/d (1.2-1.4 g/kg) - malnutrition/sepsis Fluid: 5425-9040 ml/d (1 ml/kcal) or per doctor Nutrition Diagnosis 1. Malnutrition related to poor PO as evidenced by BMI 15.1 kg/m2. Intervention 1. Recommend Vital AF 1.2 @ 20ml/hr. Goal rate 50 ml/hr. FWF 65 ml Q4H. Goal rate will provide 1440 kcal and 90g protein. (Due to malnutrition and BMI 15.1 kg/m2). 2. Recommend Regular diet (texture to be determined by DIESEL ENGINE TESTER eval). Monitor/Evaluate Goal: PO/TF intake at least 75% of estimated needs Monitor: PO/TF intake/tolerance, Labs, GI function F/U in 2-3 days as high risk 10/05-
--- NOTE | 2018-10-03 14:28 | NUR ---
SPEECH PATHOLOGIST AT BEDSIDE FOR SWALLOW EVAL. PT POCKETING FOOD WITH DELAY IN SWALLOWING. RECOMMENDED FOR HONEY-THICK LIQUID.
[2018-10-03 15:06] LABS: FREE T4 0.77 ng/dL (0.76-1.46); FREE THYROXINE INDEX 1.9 ug/dL (1.4-4.5); T4(THYROXINE) 5.8 ug/dL (4.7-13.3)
--- NOTE | 2018-10-03 15:08 | NUR ---
PT WAS SEEN FOR DYSPHAGIA. PT HAD MILD POCKETING FOR PUREE DIET AND COUGHING FOR THIN LIQUID. PT NEEDS VERBAL REMINDER TO SWALLOW PUREE DIET AND HONEY THICK LIQUID. RECOMMENDATION PUREE DIET WITH HONEY THICK LIQUID SMALL BITES AND SIPS ONLY. 1:1 SUPERVISION.
[2018-10-03 15:13] LABS: T3 TOTAL 1.04 ng/mL
--- NOTE | 2018-10-03 15:30 | NUR ---
PT HAD SMALL AMOUNT OF GREEN MUCUOUS-LIKE STOOL. PT CLEANED AND LINENS CHANGED.
[2018-10-03 16:00] VITALS: BP 127/66
--- NOTE | 2018-10-03 16:26 | NUR ---
DR. BAILON AT BEDSIDE TO SEE AND ASSESS PT, PER DR. BAILON PT STABLE FOR MST TRANSFER. WILL NOTIFY COVERING RESIDENT.
--- NOTE | 2018-10-03 16:27 | NUR ---
DR. BAILON AT BEDSIDE ASSESSING PT. UPDATES PROVIDED. QUESTIONS AND CONCERNS ADDRESSED. PT IS ABLE TO TRANSFER TO TELE.
[2018-10-03 19:25] VITALS: BP 107/49
--- NOTE | 2018-10-03 19:25 | NUR ---
RECEIVED REPORT FROM OSEI VALENTINE, AND HILTON RN. SEE NURSING ASSESSMENT FOR MORE DETAILS. PT BED AT LOWEST SETTING, HOB ELEVATED 30 DEGREES PER ASPIRATION PRECUATIONS. CALL LIGHT WITHIN REACH. SEIZURE PRECAUTIONS INTACT. NS INFUSING @ 70 ML/HR. PT ON CONTINUOUS PULSE OXIMETRY AND FULL AREA REPRESENTATIVE. WILL CONT TO MONITOR.
[2018-10-03 23:06] VITALS: BP 98/61
--- NOTE | 2018-10-04 01:32 | NUR ---
PT SLEEPING BUT AROUSABLE, EYES OPEN TO STIMULI. NO S/S OF ANY DISTRESS, REMAINS ON ROOM AIR. PT ON FULL SHERIFF'S DETECTIVE AND CONTINUOUS PULSE OXIMETRY. VITALS WNL.
[2018-10-04 03:20] VITALS: BP 94/56
--- NOTE | 2018-10-04 04:01 | NUR ---
DR. ZELAYA AT BEDSIDE, UPDATED HER ON PT STATUS AND QUESTIONS ANSWERED. NO NEW ORDERS AT THIS TIME.
--- NOTE | 2018-10-04 05:01 | NUR ---
CONSERVATION TECHNICIAN SONIA AT BEDSIDE FOR BLOOD DRAW FOR AM LABS.
[2018-10-04 05:28] LABS: BASOPHIL % 0.4 % (0-2); PLATELET COUNT 181 x10^3mcL (130-400); RED CELL DISTRIBUTION WIDTH 13.8 % (11.5-14.5)
[2018-10-04 05:45] LABS: CALCIUM 8.2 mg/dL (8.5-10.1); CARBON DIOXIDE 19.3 mmol/L (21-32); CHLORIDE SERUM 118 mmol/L (98-107); CREATININE SERUM 0.6 mg/dL (0.6-1.0); GFR1 > 60 mL/min; GLUCOSE SERUM 96 mg/dL (74-106); MAGNESIUM 1.8 mg/dL (1.8-2.4); PHOSPHOROUS 2.8 mg/dL (2.5-4.9); POTASSIUM SERUM 4.5 mmol/L (3.5-5.1); SODIUM SERUM 148 mmol/L (136-145)
--- NOTE | 2018-10-04 07:10 | NUR ---
RECIEVED REPORT FROM SERGE CASTILLO TO ASSUME ALL CARES. ALL QUESTIONS AND CONCERNS ADDRESSED. PATIENT IS CURRENTLY SLEEPING IN BED TO LEFT SIDE. SEIZURE PRECAUTIONS IN PLACE. RESPIRATIONS ARE EQUAL AND SYMMETRICAL ON ROOM AIR. IVF INFUSING TO RIGHT UPPER IV WITH NO SIGNS OF INFILTRATION NOTED. F/C IN PLACE AND SECURED DRAINING TO GRAVITY. BILATERAL HEEL PROTECTORS IN PLACE. ISOGEL MATRESS IN USE. SCD'S ON TO BLE. BUE/BLE CONTRACTURES NOTED, PILLOWS IN PLACE TO ALLEVIATE PRESSURE POINTS. FALL PRECAUTIONS IN PLACE. BED TO LOWEST POSITION, SIDE RAILS UP X3, CALL LIGHT WITHIN REACH. WILL CONTINUE TO MONITOR.
--- NOTE | 2018-10-04 07:11 | NUR ---
GAVE REPORT TO SERGE RUIZ. UPDATES GIVEN QUESTIONS ANSWERED, ENDORSED CARE.
[2018-10-04 07:37] VITALS: BP 97/69; Ht 152.4 cm; Wt 32.5 kg
--- NOTE | 2018-10-04 08:10 | NUR ---
DR. DRAKE AT BEDSIDE TO ASSESS PATIENT. UPDATES PROVIDED AND POC DISCUSSED. PER DR. DRAKE, PATIENT IS STABLE TO BE TRANSFERRED TO TELE. WILL CONTINUE TO MONITOR.
--- NOTE | 2018-10-04 09:00 | NUR ---
DELFIN, STITCHING MACHINE OPERATOR AT BEDSIDE FOR ECHOCARDIOGRAM. WILL CONTINUE TO MONITOR.
--- NOTE | 2018-10-04 10:20 | NUR ---
RT RITA AT BEDSIDE AND PLACED PATIENT ON HIGH FLOW 30 LPM AND 45% FI02. CURRENT SAT 92%. WILL CONTINUE TO MONITOR.
[2018-10-04 11:34] VITALS: BP 102/68
--- NOTE | 2018-10-04 11:58 | NUR ---
DR. GARCIA, RESIDENTS, VARNISH MELTER AND PRIMARY RN AT BEDSIDE FOR MORNING ROUNDS. PLAN OF CARE DISCUSSED. PT STABLE TO TRANSFER TO [facility]. WILL CONT TO MONITOR.
--- NOTE | 2018-10-04 12:48 | NUR ---
PATIENT HAD A LOOSE BROWNISH/GREEN STOOL NOTED. PATIENT CLEANED UP, NEW YELLOW GOWN PROVIDED. Z-GUARD APPLIED TO PERINEAL AND COCCYX AREA. PATIENT TOLERATED WELL. WILL CONTINUE TO MONITOR.
--- NOTE | 2018-10-04 14:35 | NUR ---
REPORT GIVEN TO SERGE MONDRAGON TO ASSUME ALL CARES UPON TRANSFER TO TELE FLOOR. ALL QUESTIONS AND CONCERNS ADDRESSED. PATIENT'S PARENTS MADE AWARE OF THE TRANSFER.
[2018-10-04 15:20] VITALS: BP 111/66
--- NOTE | 2018-10-04 15:20 | NUR ---
REC ICU TRANSFER VIA [facility], PT AA/O X1 MANDARIN SPK, SZ PREC INPLACE. BREATHING EVEN AND UNLABORED ON 2L NC SATING AT 96% . NO ACUTER RESP DISTRESS OR SOB NOTED. TELE 15 HR SB 59 NOTED. VS: 111/66 MAP 78, RESP 16, TEMP 98.8 PULSES PRESENT / BOWEL SOUNDS ACTIVE IN ALL FOUR QUADS. BARTH INTACT AND PATENT, DRAINING CLEAR YELLOW URINE NOTED. TOTAL CARE, AIR MATTRESS, ELBOW AND FOOT PROTECTORS APPLIED. IV TO THE MARIA VICTORIA INTACT AND AND PATENT, NS INFUSING AT 70ML/HR, NO REDNESS OR SWELLING NOTED. WILL CONTINUE TO MONITOR.
[2018-10-04 18:52] VITALS: BP 106/64
--- NOTE | 2018-10-04 19:30 | NUR ---
NO ACUTE CHANGES, NO ACUTE RESP DISTRESS OR SOB NOTED. WILL ENDORSE TO INCOMING RN.
--- NOTE | 2018-10-04 19:36 | NUR ---
RECEIVED PT FROM PREVIOUS SHIFT. PT IS MANDARIN SPEAKING. RESPONDS TO VERBAL AND TACTILE STIMULI. BREATHING E/U ON 2L OXYGEN NC. NO SOB OBSERVED. NO S/S ACUTE DISTRESS. NO SIGNS OF PAIN OBSERVED. IV SITE CDI, NO ERTHEMA OR EDEMA. HEEL AND ELBOW PROTECTORS IN PLACE. ASPIRATION PRECAUTIONS IN PLACE, HOB ELEVATED. SAFETY MEASURES IN PLACE. CALL LIGHT WITHIN REACH. WILL CONTINUE TO MONITOR.
[2018-10-04 20:34] VITALS: BP 113/65
--- NOTE | 2018-10-04 21:00 | NUR ---
PT TOLERATED MEDICATION ADMINISTRATION WELL, ASPIRATION PRECAUTIONS IN PLACE, HOB REMAINS ELEVATED. NO POCKETING NOTED. NO COUGHING NOTED AFTER PT SWALLOWED MEDICATIONS. WILL CONTINUE TO MONITOR.
--- NOTE | 2018-10-04 23:35 | NUR ---
PT RESTING IN BED WITH EYES CLOSED. EASILY AROUSABLE TO SOUND STIMULI. NO INDICATIONS OF PAIN. NO S/S ACUTE DISTRESS. BREATHING E/U ON 3L OXYGEN NC. SAFETY MEASURES IN PLACE. WILL CONTINUE TO MONITOR.
[2018-10-05] VITALS (7 sets, daily range): BP systolic 102–118; BP diastolic 50–75
--- NOTE | 2018-10-05 05:29 | NUR ---
TELE #13 PLACED ON PT PER TRANSFER ORDERS, PT RHYTHM: SINUS BRADYCARDIA, HR 45-50S.
[2018-10-05 06:38] LABS: BASOPHIL % 0.3 % (0-2); PLATELET COUNT 188 x10^3mcL (130-400); RED CELL DISTRIBUTION WIDTH 13.4 % (11.5-14.5)
--- NOTE | 2018-10-05 06:52 | NUR ---
PT SLEPT IN SHORT INTERVALS THROUGHOUT NIGHT. ALL NEEDS MET AND ATTENDED TO. NO CHANGES OVERNIGHT. BREATHING E/U ON 3L OXYGEN NC. NO SOB OBSERVED. NO SIGNS OF PAIN NOTED. NO S/S ACUTE DISTRESS. BARTH DRAINED 550CC OF CLEAR, YELLOW URINE. IV SITE CDI, NO ERYTHEMA OR EDEMA NOTED. CALL LIGHT WITHIN REACH. SAFETY MEASURESI N PLACE. WILL ENDORSE CARE TO ONCOMING SHIFT.
[2018-10-05 07:11] LABS: CALCIUM 8.2 mg/dL (8.5-10.1); CARBON DIOXIDE 21.8 mmol/L (21-32); CHLORIDE SERUM 117 mmol/L (98-107); CREATININE SERUM 0.6 mg/dL (0.6-1.0); GFR1 > 60 mL/min; GLUCOSE SERUM 93 mg/dL (74-106); MAGNESIUM 1.9 mg/dL (1.8-2.4); PHOSPHOROUS 3.2 mg/dL (2.5-4.9); POTASSIUM SERUM 4.7 mmol/L (3.5-5.1); SODIUM SERUM 148 mmol/L (136-145)
--- NOTE | 2018-10-05 07:20 | NUR ---
BEDSIDE REPORT GIVEN TO GLORY RN. ALL QUESTIONS AND CONCERNS ADDRESSED.
--- NOTE | 2018-10-05 07:30 | NUR ---
RECEIVED PT IN BED, IN NO APPARENT ACUTE DISTRES/PAIN, MANDARIN LANGUAGE, ALERT RESPONSE TO VERBAL COMMAND, FAMILY AT BEDSIDE, PERRLA, NO REDNESS/DRAINAGE, RESP EVEN AND NON-LABORED, ON RA, LUNGS CTA, DIM BLL, CHEST RISE SYMMETRICALLY, TELE #13, HR-54 AT THIS TIME, ABD FLAT AND NON-TENDER TO TOUCH, BS ACTIVE X 4, REDNESS TO PERINEAL AND COCCYX AREA, ELBOW AND HEEL PROTECTOR, (L) AND (R) HIP COVERED WITH OPTIFOAM, DRESSING D/C/I, BEDREST, Z-GUARD APPLIED, INCONTINENT, CONTRACTED TO BUE/BLE, PALP PULSES, CAP REFIL < 3 SECS, TURN Q2H, ALL NEEDS MET, CALL LIGHT IN REACH, BED AI LOW POSITION, RAILS X 2, CONTINUE TO MONITOR
--- NOTE | 2018-10-05 08:55 | NUR ---
PT IN BED, FAMILY AT BEDSIDE, IN NO ACUTE RESP DISTRESS/PAIN, AM MED GIVEN PER MD ORDER VIA EMAR, TOLERATED WELL, NO ASE NOTED AT THIS TIME, ALL NEEDS MET, TURN Q2H, CONTINUE TO MONITOR
--- NOTE | 2018-10-05 10:37 | NUR ---
REAL ESTATE OFFICE MANAGER CALLED, NOTED HR IN 40S, PT CHECKED, SLEEPING IN BED, IN NO RESP ACUTE DISTRESS, CHEST RISE SYMMETRICALLY, HEART SOUND STRONG, S1S2 NOTED AND NO ABNORMAL SOUND NOTED, CHARGE NURSE STACEY VALENTINE AWARE, CONTINUE TO MONITOR
--- NOTE | 2018-10-05 11:50 | NUR ---
PT SLEEPING IN BED, IN NO ACUTE RESP DISTRESS, TURN Q2H, ALL NEEDS MET, SAFEETY PROTOCOL FOLLOWED, CONTINUE TO MONITOR
--- NOTE | 2018-10-05 13:27 | NUR ---
I HAVE REVIEWED THE DATA COLLECTION BY SERGE ISLAS (NAME):KRISTEN CORBIN ENTERED ON (DATE/TIME): 10/05/18 @ 9095 I CONCUR WITH THE DATA AND ANY EXCEPTIONS OR COMMENTS ARE LISTED BELOW:
--- NOTE | 2018-10-05 14:30 | NUR ---
PT IN BED, IN NO ACUTE RESP DISTRESS, FAMILY AT BEDSIDE, MOTHER ASSISTED TO FEED PT, NOTED PT POCKETING FOOD, AWARE, ST JESSEAL, FAMILY AWARE, ALL NEEDS MET, SAFETY PRECAUTION FOLLOWED, CONTINUE TO MONITOR
--- NOTE | 2018-10-05 15:11 | NUR ---
NEW ORDER TO TRANSFER PT TO [facility], TELE REMOVED AND GAVE BACK TO TELE WELDING FOREMAN ZUNILDA, ALL NEEDS MET, CONTINUE TO MONITOR
--- NOTE | 2018-10-05 16:25 | NUR ---
PT WAS SEEN FOR DYSPHAGIA. PT HAD MILD POCKETING FOR PUREE DIET. PT HAD MILD COUGH FOR THIN LIQUID. PT WAS ABLE TO SAFELY SWALLOW HONEY THICK LIQUID. RECOMMENDATION PUREE DIET WITH HONEY THICK LIQUID. SMALL BITES AND SIPS ONLY 1:1 SUPERVISION
--- NOTE | 2018-10-05 17:30 | NUR ---
SEEN BY ST 2ND TIME FOR EVAL, PT MORE AWAKE, ST WAS ABLE TO PERFORM ACURATE ST EVAL D/T PT MORE AWAKE, RECOMMEND PUREED DIET AND HONEY THICKEN LIQUID AND ENCOURAGE PT TO SWALLOW FOOD DURING FEEDING. FAMILY AWARE AND AGREED WITH EVAL
--- NOTE | 2018-10-05 17:53 | NUR ---
PT RESTING IN BED, FAMILY AT BEDSIDE, IN NO ACUTE RESP DISTRESS, NO FACIAL DROOP/SLURRED SPEECH NOTED, RESP EVEN AND NON-LABORED, CHEST RISE SYMMETRICALLY, FAMILY AWARE OF ST EVAL AND SAID WILL BE WITH PT WHEN ST EVAL PT SWALLOW CAPACITY, ST AWARE FAMILY WILL COME AT MEAL TIME, IV PATENT AN INFUSING WELL, ALL NEEDS MET, JOSUE LIGHT IN REACH, BED AT LOW POSITION, RAILS X2, WILL ENDORSE TO ONCOMING RN
[2018-10-05 19:04] LABS: AMPHETAMINE QUAL UR NONE DETECTED (See below)
--- NOTE | 2018-10-05 19:34 | NUR ---
RECIEVED PT. FROM DAY NURSE. PT RESTING IN BED, PARENTS AT BEDSIDE. NO S/S OF PAIN AT THIS TIME. SZ PRECATIONS IN PLACE. PALAPABLE PULSES, NO EDEMA NOTED. LUNG SOUNDS CTA, ON 2L NC, O2 SAT 98%. NO SIGNS OF SOB, DIZZINESS, OR PALPATATIONS. BOWEL SOUNDS ACTIVE X4, LAST BM 10/05. BARTH DRAINING TO GRAVITY. MARIA VICTORIA IV CDI AND INFUSING. CALL LIGHT WITHIN REACH, BED AT LOWEST POSITION. WILL CONTINUE TO MONITOR.
--- NOTE | 2018-10-05 22:09 | NUR ---
CRUSHED PT MEDS MIXED WITH CHOCOLATE PUDDING. PT POCKETED MEDS AND SLOWLY SWOLLOWED. NO COUGHING WHILE TAKING MEDICATIONS, BUT PT HAS A CONGESTIVE COUGH. PT CHANGED AND REPOSITIONED. PT HAD MEDIUM LOOSE BROWN BM. OPTIFOAM TO COCCYX SOILED AND REPLACED. BLANCHABLE ERYTHEMA TO COCCYX AND RUPESH AREA NOTED. LABIAL EDEMA. RUPESH CARE PROVIDED. HYDRAGUARD APPLIED TO ERYTHEMIC AREAS. BED AT LOWEST POSITION. CALL LIGHT WITHIN REACH. WILL CONTINUE TO MONITOR.
--- NOTE | 2018-10-06 02:13 | NUR ---
PT RESTING IN BED WITH EYES CLOSED. CONGESTED COUGH AT TIMES. BREATHING EVEN/UNLABORED ON RA. NO S/SX OF PAIN NOTED. CALL LIGHT WITHIN REACH, BED AT LOWEST POSITION, BED ALARM ON. WILL CONTINUE TO MONITOR.
--- NOTE | 2018-10-06 02:15 | NUR ---
I HAVE REVIEWED THE DATA COLLECTION BY SERGE ISLAS: OSCAR BOO ENTERED ON 10/05-10/06 I CONCUR WITH THE DATA AND ANY EXCEPTIONS OR COMMENTS ARE LISTED BELOW:
[2018-10-06 05:24] VITALS: BP 146/69
[2018-10-06 06:31] LABS: CALCIUM 8.5 mg/dL (8.5-10.1); CARBON DIOXIDE 20.8 mmol/L (21-32); CHLORIDE SERUM 113 mmol/L (98-107); CREATININE SERUM 0.6 mg/dL (0.6-1.0); GFR1 > 60 mL/min; GLUCOSE SERUM 94 mg/dL (74-106); POTASSIUM SERUM 4.8 mmol/L (3.5-5.1); SODIUM SERUM 144 mmol/L (136-145)
[2018-10-06 06:46] LABS: BASOPHIL % 0.4 % (0-2); PLATELET COUNT 212 x10^3mcL (130-400); RED CELL DISTRIBUTION WIDTH 13.6 % (11.5-14.5)
--- NOTE | 2018-10-06 06:48 | NUR ---
PT RESTING IN BED COMFORTABLY. NO S/S OF PAIN OR DISCOMFORT AT THIS TIME. NO SOB, ON ROOM AIR. NO S/S OF DIZZINESS, N/V, OR PALPATATIONS. LARGE BM, CLEANED AND OPTIFOAM CHANGED. BARTH CARE PROVIDED. NO SIGNIFICANT CHANGES THIS SHIFT. BED AT LOWEST POSITION, CALL LIGHT WITHIN REACH. WILL ENDORSE TO DAY NURSE.
--- NOTE | 2018-10-06 07:15 | NUR ---
RECEIVED PT IN BED, IN NO APPARENT ACUTE DISTRES/PAIN, MANDARIN LANGUAGE, ALERT RESPONSE TO VERBAL COMMAND, FAMILY AT BEDSIDE, PERRLA, NO REDNESS/DRAINAGE, RESP EVEN AND NON-LABORED, ON RA, LUNGS CTA, DIM BLL, CHEST RISE SYMMETRICALLY, MS PT, ABD FLAT AND NON-TENDER TO TOUCH, BS ACTIVE X 4, REDNESS TO PERINEAL AND COCCYX AREA, ELBOW AND HEEL PROTECTOR, (L) AND (R) HIP COVERED WITH OPTIFOAM, REDNESS TO LABIA, DRESSING D/C/I, BEDREST, Z-GUARD APPLIED, INCONTINENT, FC 16FR, CLEAR, BIRGHT YELLOW AND NO SEDIMENT, CONTRACTED TO BUE/BLE, PALP PULSES, CAP REFIL < 3 SECS, TURN Q2H, ALL NEEDS MET, CALL LIGHT IN REACH, BED AT LOW POSITION, RAILS X 2, CONTINUE TO MONITOR
[2018-10-06 08:35] VITALS: BP 92/52
--- NOTE | 2018-10-06 08:55 | NUR ---
PT IN BED, FAMILY AT BEDSIDE, AM MED GIVEN PER MD ORDER VIA EMAR, TAKEN WELL, NO ASE NOTED AT THIS TIME, IN NO ACUTE RESP DISTRESS, DR WOODSON SEEN PT AT BEDSIDE, DISCUSSED WITH FATHER POC, ALL NEEDS MET AT THIS TIME, SAFETY PROTOCOL FOLLOWED, CONTINUE TO MONITOR
--- NOTE | 2018-10-06 10:59 | NUR ---
I HAVE REVIEWED THE DATA COLLECTION BY SERGE ISLAS (NAME):KRISTEN CORBIN ENTERED ON (DATE/TIME):10/06/18 AT 1100 AM I CONCUR WITH THE DATA AND ANY EXCEPTIONS OR COMMENTS ARE LISTED BELOW:
--- NOTE | 2018-10-06 11:54 | NUR ---
PT SLEEPING IN BED, IN NO ACUTE RESP DISTRESS, TURN Q2H, SAFETY PROTOCOL FOLLWED, CONTINUE TO MONITOR
--- NOTE | 2018-10-06 12:27 | NUR ---
1. Recommend continuing puree diet with honey thick liquid. 2. Recommend Ensure pudding BID.
--- NOTE | 2018-10-06 12:27 | NUR ---
Follow-up Nutrition Assessment: 241/B CYNTHIA SANTANA NIDA HR Dx: sepsis and PNA PMHx: Cerebral palsy, Seizure Labs: (10/06) CL 113H, HGB 10.4L Meds: Depakote, D 5%, folic acid, Lipitor, morphine sulfate, mucinex, Zofran, zosyn Diet: puree diet (aspiration precaution, assisted feeding) PO Intake: (10/06) breakfast 20%, (10/05) 60% breakfast, (10/04) 50% dinner, (10/03) 75% breakfast, lunch Weights: (10/02) 29 kg, (10/03) 35 kg (10/04) 32.5 kg, (10/06), Skin: redness to perineal and sacral Hoang: 11 I/Os: (10/06) 2050/375 (-1700) Edema: none GI: Last BM: 10/06 RDN Visit (10/06): Patient was sleeping with no family at bedside. PO intake is poor. Per progress note (10/06), patient's father refused PEG tube placement for the patient. LOGISTICS ASSOCIATE recommended honey thick pureed diet. Patient was discussed in bed huddles. Family does not want Peg tube placement and wants to continue oral intake only at this time. Discussed recommendations with EVAN Groves. Estimated Nutritional Needs Based on actual body weight 35 kg Energy: 9404-8068 kcal/d (35-40 kcal/kg)- underweight Protein: 42-49 g/d (1.2-1.4 g/kg) - malnutrition/sepsis Fluid: 3039-8681 ml/d (1 ml/kcal) or per doctor Nutrition Diagnosis 1.Malnutrition related to poor PO as evidenced by BMI 15.1 kg/m2. (ongoing) Intervention 1. Recommend continuing puree diet with honey thick liquid. 2. Recommend Ensure pudding BID. Monitor/Evaluate Goal: Have pt meet at least 75% of estimated needs Monitor: PO intake, Labs, GI function F/U in 2-3 days as high risk
--- NOTE | 2018-10-06 15:15 | NUR ---
PT RESTING IN BED, IN NO ACUTE RESP DISTRESS, RESP EVEN AND NON-LABORED, TURN Q2H, ALL NEEDS MET AT THIS TIME, SAFETY PROTOCOL FOLLOWED, CONTINUE TO MONITOR
--- NOTE | 2018-10-06 15:34 | NUR ---
SCREEN FOR LOW CHRISTIANO SCALE AT RISK PRESSURE ULCER INJURY PREVENTION INTERVENTIONS IN PLACE. -TURN AND REPOSITION PATIENT Q 2H OFFLOAD LEFT AND RIGHT HIPS -ASSESS AND MONITOR SKIN CONDITION DURING POSITION CHANGE -OFFLOAD BILATERAL HEELS BY PLACING PILLOWS UNDER CALVES AT ALL TIMES, UNLESS OTHERWISE CONTRAINDICATED -PRESSURE REDISTRIBUTION SURFACE THERAPY -KEEP SKIN CLEAN AND DRY AT ALL TIMES. -HYDRAGUARD AND OPTIFOAM TO SACRALCOCCYX AND PERINEUM AREA
[2018-10-06 17:18] VITALS: BP 95/63
--- NOTE | 2018-10-06 18:10 | NUR ---
PT RESTING IN BED, FAMILY AT BEDSIDE, FEEDING PT, FATEHR MADE AWAER NOT TO TRY TO FEED PT WHILE PT HALF-SLEEPING FOR ASPIRATION PREACUTION, VERBALLY UNDERSTANDING, IN NO ACUTE RESP DISTRESS, NO FACIAL DROOP/SLURRED SPEECH NOTED, RESP EVEN AND NON-LABORED, CHEST RISE SYMMETRICALLY, FAMILY AWARE OF ST EVAL AND SAID WILL BE WITH PT WHEN ST EVAL PT SWALLOW CAPACITY, ST AWARE FAMILY WILL COME AT MEAL TIME, IV PATENT AN INFUSING WELL, ALL NEEDS MET, JOSUE LIGHT IN REACH, BED AT LOW POSITION, RAILS X2, WILL ENDORSE TO ONCOMING RN
--- NOTE | 2018-10-06 19:30 | NUR ---
RECIEVED PT FROM DAY NURSE. PT RESTING IN BED COMFORTABLY, PARENTS AT BEDSIDE. NO S/S OF PAIN AT THIS TIME. NO S/S OF SOB, BREATHING EVEN AND UNLABORED, ON ROOM AIR. NO S/S OF CHEST PAIN, DIZZINESS, OR PALPATATIONS. BOWEL SOUNDS ACTIVE X4. BARTH DRAINING TO GRAVITY. RVA IV INTACT AND INFUSING. CALL LIGHT WITHIN REACH, BED AT LOWEST POSITION. WILL CONTINUE TO MONITOR.
--- NOTE | 2018-10-06 21:18 | NUR ---
PT CLEANED AND REPOSITIONED IN BED. ORAL CARE PROVIDED. STAT LOCK TO L THIGH BROKEN AND REMOVED, SKIN TEAR NOTED. PICTURE OBTAINED. WOUND CARE PROVIDED- CLEANSED WITH NS, PATTED DRY, APPLIED ADAPTIC WITH ISLAND DRESSING. NEW STAT LOCK APPLIED TO R UPPER THIGH.
[2018-10-06 21:29] VITALS: BP 108/66
--- NOTE | 2018-10-07 00:53 | NUR ---
PT RESTING IN BED COMFORTABLY WITH EYES CLOSED. NO S/S OF PAIN AT THIS TIME. BREATHING EVEN AND UNLABORED. NO S/S OF SOB AT THIS TIME. REPOSITIONING Q2. BED AT LOWEST POSITION. CALL LIGHT WITHIN REACH. WILL CONTINUE TO MONITOR.
--- NOTE | 2018-10-07 02:31 | NUR ---
I HAVE REVIEWED THE DATA COLLECTION BY SERGE ISLAS: OSCAR BOO ENTERED ON 10/06-10/07 I CONCUR WITH THE DATA AND ANY EXCEPTIONS OR COMMENTS ARE LISTED BELOW:
[2018-10-07 05:06] VITALS: BP 114/66
--- NOTE | 2018-10-07 05:45 | NUR ---
PT LYING IN BED COMFORTABLY. NO S/S OF PAIN OR DISCOMFORT AT THIS TIME. PT HAD A LARGE BROWN FORMED BOWEL MOVEMENT. PT CLEANED, OPTIFOAM TO LEFT HIP SOILED AND REPLACED. BARTH CARE PROVIDED. NO SIGNIFICANT CHANGES THIS SHIFT. BED AT LOWEST POSITION. CALL LIGHT WITHIN REACH. WILL CONTINUE TO MONITOR.
--- NOTE | 2018-10-07 07:00 | NUR ---
RECEIVED PATIENT FROM GLOVE BOARDER NURSE. PATIENT IS RESTING WITH BOTH EYES CLOSED, AROUSABLE. SEIZURE AND ASPIRATION PREC IN PLACE. ON ROOM AIR, RESP E/U. BARTH CATHETER DRAINING CLEAR URINE TO GRAVITY WELL, FREE OF KINKS. CONTRACTURES NOTED TO BUE AND BLE. AIR MATTRESS AND FALL PREC IN PLACE. ELBOW AND HEEL PROTECTORS IN PLACE. IV NOTED TO MARIA VICTORIA, IVF INFUSING WELL ORDERED, NO S/S ERYTHEMA AT SITE. CALL LIGHT WITHIN EASY REACH. BED IN LOWEST POSITION. SIDE RAILS UP X3. WILL CONTINUE PLAN OF CARE.
[2018-10-07 07:05] LABS: BASOPHIL % 0.6 % (0-2); PLATELET COUNT 213 x10^3mcL (130-400); RED CELL DISTRIBUTION WIDTH 13.5 % (11.5-14.5)
[2018-10-07 07:15] VITALS: BP 86/46
[2018-10-07 07:27] LABS: CALCIUM 8.6 mg/dL (8.5-10.1); CARBON DIOXIDE 21.7 mmol/L (21-32); CHLORIDE SERUM 112 mmol/L (98-107); CREATININE SERUM 0.5 mg/dL (0.6-1.0); GFR1 > 60 mL/min; GLUCOSE SERUM 87 mg/dL (74-106); POTASSIUM SERUM 4.4 mmol/L (3.5-5.1); SODIUM SERUM 141 mmol/L (136-145)
[2018-10-07] MEDS ORDERED: LEVAQUIN750 MG PO (08:24)
[2018-10-07 11:23] VITALS: BP 86/46
[2018-10-07 12:25] VITALS: BP 86/46
[2018-10-07 12:33] VITALS: BP 97/45
[2018-10-07 12:34] VITALS: BP 97/45
--- NOTE | 2018-10-07 12:43 | NUR ---
EVAN CHE PAGED REGARDING DC PAPERWORK. AWAITING CALL BACK.
--- NOTE | 2018-10-07 12:51 | NUR ---
BARTH CATHETER DC'D AT THIS TIME. PATIENT TOLERATED WELL.
--- NOTE | 2018-10-07 13:14 | NUR ---
ALL DC INSTRUCTIONS GIVEN TO PATIENT'S FATHER AND MOTHER. ALL QUESTIONS ANSWERED REGARDING DC PAPERWORK. ALL NEW PERSCRIPTIONS GIVEN TO FAMILY. FAMILY EDUCATED ON ASPIRATION PRECAUTIONS. ALL PERSONAL BELONGINGS GATHERED. FAMILY TO TRANSPORT PATIENT HOME. FAMILY PREPARING PATIENT FOR DC AND THEN TO NOTIFY WHEN READY TO BE DC'D.
--- NOTE | 2018-10-07 13:28 | NUR ---
PATIENT DC'D HOME AT THIS TIME WITH FAMILY. ALL PERSONAL BELONGINGS TAKEN WITH PATIENT. PATIENT ESCORTED DOWN TO DC OFFICE.
== END 2018-10-07 13:28 | disposition home or self-care (01) | DRG 871 ==
LOC: ED 18:15 → MU 21:49 → IC 21:49 → MU 22:46 → DU 10-02 07:00 → IC 10-02 15:38 → DU 10-04 15:22 → MU 10-04 20:03 → DU 10-05 05:17 → MU 10-05 15:04
PROVIDERS: Emergency Medicine; Internal Medicine; ADMIT Internal Medicine
DX: A41.9 Sepsis, unspecified organism (principal); E43 Unspecified severe protein-calorie malnutrition; N17.0 Acute kidney failure with tubular necrosis; J69.0 Pneumonitis due to inhalation of food and vomit; Z68.1 Body mass index [BMI] 19.9 or less, adult; E87.6 Hypokalemia; G80.9 Cerebral palsy, unspecified; R00.1 Bradycardia, unspecified; G40.909 Epilepsy, unspecified, not intractable, without status epilepticus; M62.50 Muscle wasting and atrophy, not elsewhere classified, unspecified site; D53.9 Nutritional anemia, unspecified; Z79.899 Other long term (current) drug therapy
CPT/HCPCS: 83880; 84439; 92526-GN; 92610; 92610-GN; G0378; J0456; J2543; J3490; J7030; J7042; Q0092